=== PATIENT | male | born 2000 | race Caucasian/White ===

== ENCOUNTER 2018-06-18 21:06 | Emergency (ER) | payer SELFPAY ==
[~2018-06-18] VITALS: Ht 172.7 cm; Wt 59.4 kg
[2018-06-18 21:08] VITALS: BP 113/87
[2018-06-18 21:12] VITALS: BP 113/87
--- NOTE | 2018-06-18 21:14 | NUR ---
TO LOBBY A/W BED, ARTEMIO LOBO NOTED.
[2018-06-18 22:20] LABS: BARBITURATE, URINE NEG. ng/ml (NEG <=200); BENZODIAZEPINE, URINE NEG. ng/mL (NEG <=200); CANNABINOID, URINE NEG. ng/mL (NEG <=50); COCAINE, URINE NEG. ng/mL (NEG <=300); OPIATE, URINE NEG. ng/mL (NEG <=2000); PHENCYCLIDINE SCREEN,URINE NEG. ng/mL (NEG <=25)
--- NOTE | 2018-06-18 22:40 | NUR ---
2239--1ST CALL, PATIENT LEFT WITHOUT BEING SEEN BY DR. PAL. NO FURTHER CARE PROVIDED FOR PATIENT. 2244---2ND CALL, NO ANSWER 2249---3RD CALL, NO ANSWER.
== END 2018-06-18 22:25 | disposition left against medical advice (07) ==
LOC: MED 21:06
DX: F41.9 Anxiety disorder, unspecified (principal); Z53.21 Procedure and treatment not carried out due to patient leaving prior to being seen by health care provider
CPT/HCPCS: 80305; 99281

== ENCOUNTER 2018-06-19 14:35 | Emergency (ER) | payer OTHER ==
[~2018-06-19] VITALS: Ht 172.7 cm; Wt 59.4 kg
[2018-06-19 14:48] VITALS: BP 131/72
[2018-06-19 14:50] VITALS: BP 131/72
--- NOTE | 2018-06-19 14:50 | NUR ---
CAME IN FOR A NOTE TO EXCUSE HIM FROM WORK DUE TO AN ANXIETY ATTACK HE HAD LAST NIGHT.
--- NOTE | 2018-06-19 14:50 | NUR ---
Patient discharged with v/s stable. Written and verbal after care instructions given and explained. Patient verbalized understanding. Ambulatory with steady gait. All questions addressed prior to discharge. Advised to follow up with PMD.
--- NOTE | 2018-06-19 14:52 | NUR ---
PT AMBULATED TO ED [facility] E
== END 2018-06-19 14:52 | disposition home or self-care (01) ==
LOC: MED 14:35
DX: F41.9 Anxiety disorder, unspecified (principal)
CPT/HCPCS: 99281